=== PATIENT | female | born 1990 ===

== ENCOUNTER 2017-11-05 15:30 | Outpatient (CLI) | payer MEDICAID ==
--- NOTE | 2017-11-05 16:59 | ULT ---
PELVIC ULTRASOUND: History: Pelvic pressure and pain with frequent urination for six years. Comparison: None. FINDINGS: Multiplanar grayscale and color doppler images were obtained in a transabdominal and transvaginal pel keyona ultrasound. Spectral analysis of the doppler waveforms of the ovaries were performed. The uterus is retroverted without focal abnormality. The endometrial stripe is normal in thickness me asuring 7 mm. A small amount of free fluid is seen in the pelvis. Both ovaries are normal in size and appearance an d demonstrate normal internal flow. IMPRESSION: No significant pelvic abnormality. POS: OFF
== END 2017-11-05 15:31 | disposition home or self-care (01) ==
LOC: BICULT 15:30
PROVIDERS: ATTEND Nurse Practitioner Women's Health
DX: R10.2 Pelvic and perineal pain (principal)
CPT/HCPCS: 76856